=== PATIENT | female | born 1955 | race Caucasian/White ===

== ENCOUNTER 2017-08-29 15:32 | Outpatient (CLI) | payer OTHER ==
--- NOTE | 2017-08-30 09:07 | XRAY Report ---
SACRUM AND COCCYX: 08/29/2017 CLINICAL INDICATION: Pain. FINDINGS: AP, lateral, oblique views of the sacrum and coccyx demonstrate no evidence of fracture. The sacral ala are preserved. The sacroiliac joints demonstrate minimal degenerative changes. A pessary is noted in the pelvis. IMPRESSION: MINIMAL DEGENERATIVE CHANGES IN THE SACROILIAC JOINTS. NO EVIDENCE OF FRACTURE. TD: 08/30/2017 09:06
--- NOTE | 2017-08-30 09:08 | XRAY Report ---
THREE VIEW LUMBAR SPINE: 08/29/2017 CLINICAL INDICATION: Back pain. FINDINGS: AP, lateral, coned down views of the lumbar spine demonstrate mild degenerative disk and facet disease. There is no evidence of compression fracture or subluxation. The bowel gas pattern appears normal. IMPRESSION: MILD DEGENERATIVE CHANGES. TD: 08/30/2017 09:07
== END 2017-08-29 15:33 | disposition home or self-care (01) ==
LOC: DI.S 15:32
PROVIDERS: ATTEND Nurse Practitioner Family
DX: M51.36 Other intervertebral disc degeneration, lumbar region (principal); M47.898 Other spondylosis, sacral and sacrococcygeal region; M47.896 Other spondylosis, lumbar region
CPT/HCPCS: 72100; 72220

== ENCOUNTER 2017-08-29 16:00 | Outpatient (CLI) | payer OTHER ==
--- NOTE | 2017-08-30 11:51 | Mammography Report ---
DIGITAL SCREENING MAMMOGRAM: 08/29/2017 CLINICAL INDICATION: A 62-year-old with history of late childbearing for screening. COMPARISON: 10/2013, 06/2010. TECHNIQUE: Routine CC and MLO projections were obtained of the breasts as well as bilateral laterally exaggerated craniocaudal views. FINDINGS: Scattered fibroglandular tissue is present within the breasts. There are no dominant masses, suspicious microcalcifications, or secondary signs of malignancy. In comparison to the previous studies, there are no significant changes. IMPRESSION: NO MAMMOGRAPHIC EVIDENCE OF MALIGNANCY. NO SIGNIFICANT INTERVAL CHANGES. RECOMMENDATION: Screening mammography is recommended annually. BIRADS CATEGORY 1 - NEGATIVE. STANDARD QUALIFYING STATEMENTS: 1. This examination was reviewed with the aid of Computed-Aided Detection (CAD). 2. A negative or benign imaging report should not delay biopsy if clinically suspicious findings are present. Consider surgical consultation if warranted. More than 5% of cancers are not identified by imaging. 3. Dense breasts may obscure an underlying neoplasm. TD: 08/30/2017 11:51
== END 2017-08-29 23:59 ==
LOC: DI.S 16:00
PROVIDERS: ATTEND Nurse Practitioner Family
DX: Z12.31 Encounter for screening mammogram for malignant neoplasm of breast (principal)
CPT/HCPCS: 77067

== ENCOUNTER 2017-09-22 09:17 | Outpatient (CLI) | payer OTHER ==
--- NOTE | 2017-09-22 12:39 | Ultrasound Report ---
PELVIC ULTRASOUND: 09/22/2017 CLINICAL INDICATION: Evaluate fibroid, increasing back pain. TECHNIQUE: Transabdominal pelvic ultrasound performed for global evaluation. Transvaginal pelvic ultrasound performed for detailed evaluation. Real-time scanning performed and static images obtained. FINDINGS: The uterus measures 10.2 x 8.4 x 7.8 cm. The dominant leiomyoma now measures 8.6 x 8.0 x 7.5 cm, (slightly increased from 07/24/2015, when it measured 8.0 x 7.8 x 7.6 cm). The leiomyoma again obscures the endometrium. The ovaries are unremarkable, with the right measuring 2.0 x 1.9 x 1.1 cm and the left measuring 2.0 x 1.6 x 0.8 cm. No free fluid is present. IMPRESSION: SLIGHT INCREASE IN SIZE OF DOMINANT LEIOMYOMA, OBSCURING THE ENDOMETRIUM. NORMAL OVARIES. TD: 09/22/2017 12:39
== END 2017-09-22 09:18 | disposition home or self-care (01) ==
LOC: DI 09:17
PROVIDERS: ATTEND Nurse Practitioner Family
DX: D25.9 Leiomyoma of uterus, unspecified (principal); M54.5 Low back pain
CPT/HCPCS: 76830; 76856

== ENCOUNTER 2020-12-02 14:14 | Outpatient (CLI) | payer OTHER ==
--- NOTE | 2020-12-03 12:49 | Mammography Report ---
BILATERAL DIGITAL SCREENING MAMMOGRAM 3D/2D WITH EXAGGERATED CC: 12/02/2020 CLINICAL: Routine screening. Comparison is made to exams dated: 08/29/2017 mammogram and 10/24/2013 mammogram - [facility]. There are scattered fibroglandular elements in both breasts. No significant masses, calcifications, or other findings are seen in either breast. There has been no significant interval change. IMPRESSION: NEGATIVE There is no mammographic evidence of malignancy. A 1 year screening mammogram is recommended. This exam was interpreted at Station ID: [id number]. NOTE: For mammograms, a report in lay terms will be sent to the patient. Approximately 15% of breast malignancies will not be visualized mammographically. In the management of a palpable breast mass, a negative mammogram must not discourage biopsy of a clinically suspicious lesion. Electronically Signed By: Jayant Caba M.D. ddp/penrad:12/02/2020 15:15:40 ACR BI-RADS Category 1: Negative 3341F PARENCHYMAL PATTERN: (A) - The breast(s) demonstrate(s) scattered fibroglandular densities. BI-RADS CATEGORY: (1) - 1 RECOMMENDATION: (ANNUAL) - Recommend routine annual screening mammography. [id number] 1 year screening LATERALITY: (B)
== END 2020-12-02 14:15 | disposition home or self-care (01) ==
LOC: DI.S 14:14
PROVIDERS: ATTEND Nurse Practitioner Family
DX: Z12.31 Encounter for screening mammogram for malignant neoplasm of breast (principal)

== ENCOUNTER 2021-02-08 15:58 | Outpatient (CLI) | payer OTHER ==
--- NOTE | 2021-02-09 09:44 | Ultrasound Report ---
PROCEDURE: Pelvic w/Transvaginal INDICATIONS: UTERINE LEIOMYOMA TECHNIQUE: Real-time scanning was performed of the pelvic organs, with image documentation. Additional endovagi nal scanning was necessary due to incomplete visualization of the adnexal and endometrial structures by transabdominal scanning. COMPARISON: Pelvic ultrasound, 09/22/2017. FINDINGS: No pathologic free abdominal or pelvic fluid. Uterus: Uterus is enlarged and retroverted measuring 11.3 x 8.7 x 9.5 cm. The endometrium measures 4.6 mm in combined thickness. There is a large intramural/submucosal fibroid in the right posterior uterine wall measuring 7.6 x 7.2 x 7.3 cm. Previously it measured 8.6 x 8.0 x 7.5 cm on 09/22/2017. Ovaries: Ovaries are not well visualized. IMPRESSION: 1. Enlarged uterus with a large intramural/submucosal fibroid involving the right posterior uterine w all measuring 7.6 x 7.2 x 7.3 cm. It appears slightly decreased in size when compared to 09/22/2017. 2. Ovaries are not visualized. Reviewed by: Kim French MD on 02/09/2021 9:43 AM PDT Approved by: Kim French MD on 02/09/2021 9:43 AM PDT Station ID: [id number]
== END 2021-02-08 15:59 | disposition home or self-care (01) ==
LOC: DI 15:58
PROVIDERS: ATTEND Registered Nurse
DX: D25.1 Intramural leiomyoma of uterus (principal)

== ENCOUNTER 2023-01-20 13:40 | Outpatient (CLI) | payer MEDICARE ==
--- NOTE | 2023-01-20 14:31 | XRAY Report ---
PROCEDURE: Lumbar Spine 2 View INDICATIONS: LOW BACK PAIN TECHNIQUE: 3 views of the lumbar spine were acquired. COMPARISON: None. FINDINGS: Bones: 5 [id number] vertebrae are present. Mild levocurvature of the lumbar spine.. No vertebr al body compression fractures. No suspicious bony lesions. There are multilevel degenerative change s of the lumbar spine with facet arthropathy and disc height loss with degenerative endplate changes and marginal spurring. This is most pronounced at L4-L5 and L5-S1. Decreased osseous correlation. Soft tissues: Overlying bowel gas pattern is normal. No suspicious soft tissue calcifications. IMPRESSION: Multilevel degenerative changes of the lumbar spine. Reviewed by: Khurram Quarles MD on 01/20/2023 2:29 PM PDT Approved by: Khurram Quarles MD on 01/20/2023 2:29 PM PDT Station ID: [id number]
--- NOTE | 2023-01-20 14:32 | XRAY Report ---
PROCEDURE: Sacrum/Coccyx INDICATIONS: LOW BACK PAIN TECHNIQUE: 3 views of the sacrum and coccyx acquired. COMPARISON: X-ray 08/29/2018 FINDINGS: Bones: No fractures or dislocations. No suspicious bony lesions. Decreased osseous mineralization. Mild degenerative changes about sacral iliac joints. Soft tissues: Visualized bowel gas pattern is normal. No suspicious soft tissue densities. IMPRESSION: Mild degenerative changes of bilateral sacroiliac joints. Decreased osseous mineralization. Reviewed by: Khurram Quarles MD on 01/20/2023 2:30 PM PDT Approved by: Khurram Quarles MD on 01/20/2023 2:30 PM PDT Station ID: [id number]
== END 2023-01-20 13:41 | disposition home or self-care (01) ==
LOC: DI.S 13:40
DX: M47.816 Spondylosis without myelopathy or radiculopathy, lumbar region (principal); M47.817 Spondylosis without myelopathy or radiculopathy, lumbosacral region; M47.898 Other spondylosis, sacral and sacrococcygeal region

== ENCOUNTER 2023-07-21 10:12 | Outpatient (CLI) | payer MEDICARE, OTHER ==
--- NOTE | 2023-07-21 13:23 | MRI Report ---
PROCEDURE: Lumbar Spine WO INDICATIONS: LOW BACK PAIN TECHNIQUE: Noncontrast sagittal T1 spin echo and T2 fast echo, sagittal STIR, axial T2 fast spin echo through th e lumbar spine. COMPARISON: Lumbar spine radiographs 01/20/2023. FINDINGS: Image quality: Excellent. Alignment and Curvature: There is normal bony alignment. Bone Marrow: Marrow is of normal overall signal. No acute vertebral body compression fractures. Ty pically incidental Tarlov cysts are noted in the sacrum. Spinal Cord: Conus medullaris terminates at the L2 level. Visualized cord demonstrates normal signa l and size. Paraspinous Soft Tissues: No paravertebral masses. Fibroid uterus is partially imaged. T12-L1: Disc desiccation and facet hypertrophy is seen that do not result in significant spinal figueroa l stenosis or neuroforaminal narrowing. L1-L2: Disc desiccation and mild circumferential disc bulging as well as moderate bilateral facet hypertrophy. Findings result in mild narrowing of the bilateral neural foramina without significant s kindra canal stenosis. L2-L3: Disc desiccation and mild sagittal spinal joint as well as moderate bilateral facet hypertr ophy. Findings result in mild narrowing of the bilateral neural foramina and mild spinal canal narrow ing. L3-L4: Right paracentral disc extrusion is seen measuring 15 x 7 mm on axial images by 15 mm cranio caudal, extending inferiorly along the posterior L4 vertebral body. There is also disc desiccation an d loss of disc space height as well as circumferential disc bulging, moderate bilateral facet hypertr ophy, buckling of the ligamentum flavum. Findings result in effacement of the right lateral recess an d possible impingement of the traversing L4 nerve root, mild to moderate narrowing of the spinal figueroa l, mild to moderate right neural foraminal narrowing and mild left neural foraminal narrowing. L4-L5: Disc desiccation and loss of disc space height with moderate circumferential disc bulging as well as moderate bilateral facet hypertrophy and mild buckling of the ligamentum flavum. Superimpose d small focal disc extrusion is seen in the right paracentral region measuring 9 x 3 x 9 mm extending superiorly along the L4 vertebral body.. There is partial effacement of the right lateral recess wit h disc material abutting the traversing right L5 nerve root. There is moderate right and mild to mode rate left neural foraminal narrowing and mild narrowing of the central spinal canal. L5-S1: Disc desiccation and loss of disc space height with surrounding rectal disc bulging and mild bilateral facet hypertrophy. Findings result in mild to moderate narrowing of the bilateral neural f oramina without significant spinal canal stenosis. IMPRESSION: 1.At L3-4, moderate right paracentral disc extrusion is seen that effaces the right lateral recess an d may impinge upon the traversing right L4 nerve roots. There are also degenerative changes resulting in mild to moderate narrowing of the spinal canal and mild to moderate right and mild left neural fo raminal narrowing at this level. 2.At L4-5, degenerative changes and a small right paracentral disc extrusion are seen with disc mater ial abutting the traversing right L5 nerve roots without definite impingement. There is mild spinal c anal narrowing as well as moderate right and mild to moderate left foraminal narrowing. 3.Additional mild to moderate multilevel degenerative disc disease and facet hypertrophy are seen in the lumbar spine as described in detail in the body of the report. Reviewed by: Adam Camacho MD on 07/21/2023 1:21 PM PST Approved by: Adam Camacho MD on 07/21/2023 1:21 PM PST Station ID: [id number]
== END 2023-07-21 10:13 | disposition home or self-care (01) ==
LOC: DI 10:12
PROVIDERS: ATTEND Registered Nurse
DX: M51.26 Other intervertebral disc displacement, lumbar region (principal); M47.816 Spondylosis without myelopathy or radiculopathy, lumbar region; M47.815 Spondylosis without myelopathy or radiculopathy, thoracolumbar region; M50.33 Other cervical disc degeneration, cervicothoracic region; M48.03 Spinal stenosis, cervicothoracic region; M51.36 Other intervertebral disc degeneration, lumbar region; M48.061 Spinal stenosis, lumbar region without neurogenic claudication; M51.37 Other intervertebral disc degeneration, lumbosacral region; M48.07 Spinal stenosis, lumbosacral region

== ENCOUNTER 2023-07-21 10:13 | Outpatient (CLI) | payer MEDICARE, OTHER ==
--- NOTE | 2023-07-21 13:52 | XRAY Report ---
PROCEDURE: Hips w/Pelvis 2-3V BL INDICATIONS: LOW BACK PAIN TECHNIQUE: 3 view(s) of the hip were acquired. COMPARISON: None FINDINGS: Bones: No fractures or dislocations. No suspicious bony lesions. The visualized pelvic ring appear s intact. Moderate bilateral degenerative hip joint space narrowing as well as lower lumbar spine. N o erosions. Soft tissues: No suspicious soft tissue calcifications or masses. IMPRESSION: Bilateral hip and lower lumbar arthritic change. Reviewed by: Candace Frias MD on 07/21/2023 1:51 PM PST Approved by: Candace Frias MD on 07/21/2023 1:51 PM PST Station ID: [id number]
== END 2023-07-21 10:14 | disposition home or self-care (01) ==
LOC: DI 10:13
PROVIDERS: ATTEND Registered Nurse
DX: M47.816 Spondylosis without myelopathy or radiculopathy, lumbar region (principal); M16.0 Bilateral primary osteoarthritis of hip; M51.26 Other intervertebral disc displacement, lumbar region; M47.815 Spondylosis without myelopathy or radiculopathy, thoracolumbar region; M50.33 Other cervical disc degeneration, cervicothoracic region; M48.03 Spinal stenosis, cervicothoracic region; M51.36 Other intervertebral disc degeneration, lumbar region; M48.061 Spinal stenosis, lumbar region without neurogenic claudication; M51.37 Other intervertebral disc degeneration, lumbosacral region; M48.07 Spinal stenosis, lumbosacral region

== ENCOUNTER 2023-11-29 17:11 | Outpatient (CLI) | payer MEDICARE, OTHER ==
--- NOTE | 2023-11-29 17:46 | CT Report ---
PROCEDURE: Head WO INDICATIONS: HEAD INJURY TECHNIQUE: Noncontrast 4.5 mm thick angled axial sections acquired from the foramen magnum to the vertex. For r adiation dose reduction, the following was used: automated exposure control, adjustment of mA and/or kV according to patient size. COMPARISON: None. FINDINGS: Image quality: Diagnostic CSF spaces: Slightly asymmetric lateral ventricles, larger on the right. No ventriculomegaly overall. Basal cisterns are patent Volume: Generally maintained Brain: No intracranial hemorrhage. Gerber-white differentiation is grossly maintained. Craniofacial structures: No significant craniofacial abnormality where visualized. IMPRESSION: No acute intracranial hemorrhage. Reviewed by: Dawson Hinojosa MD on 11/29/2023 5:45 PM PDT Approved by: Dawson Hinojosa MD on 11/29/2023 5:45 PM PDT Station ID: [id number]
== END 2023-11-29 17:12 | disposition home or self-care (01) ==
LOC: DI 17:11
PROVIDERS: ATTEND Registered Nurse
DX: S09.90XA Unspecified injury of head, initial encounter (principal)

== ENCOUNTER 2023-12-18 08:16 | Outpatient (CLI) | payer MEDICARE, OTHER ==
--- NOTE | 2023-12-19 15:35 | Ultrasound Report ---
PROCEDURE: Pelvic w/Transvaginal INDICATIONS: POSTMENOPAUSAL BLEEDING TECHNIQUE: Real-time scanning was performed of the pelvic organs, with image documentation. Additional endovagi nal scanning was necessary due to incomplete visualization of the adnexal and endometrial structures by transabdominal scanning. COMPARISON: 02/08/2021 FINDINGS: Uterus: Uterus is retroverted and enlarged in size at 9.5 x 9.8 x 9.9 cm. The myometrium is heterog eneous. The endometrium measures 7 mm in combined thickness. Mid fundal intramural/submucosal fibro id measuring 6.6 x 7.8 x 7.0 cm, previously 7.2 x 7.3 x 7.6 cm. Additional left posterior intramural fibroid measuring 2.8 x 3.4 x 3.7 cm which was not seen on prior and may be new. Ovaries: The right ovary measures 2.4 x 1.6 x 2.6 cm, with a calculated ovarian volume of 5.3 cc. Hy poechoic focus within the right ovary measuring 1.8 x 1.3 x 2.0 cm, may represent a solid lesion. The left ovary measures 2.1 x 1.2 x 1.1 cm, with a calculated ovarian volume of 1.4 cc. Less than 12 fo llicles can be seen in each ovary. No adnexal masses are seen. No cystic lesions measuring greater t katz 3 cm. Other: No pathologic free abdominal or pelvic fluid. IMPRESSION: 1.Similar appearance of large fibroid measuring up to 7.8 cm. Additional left posterior intramural fi broid measuring 3.7 cm which was not seen on prior and may be new. 2.Hypoechoic lesion in the right ovary measuring 2.0 cm, a solid lesion is not excluded and follow-up ultrasound in 6-12 weeks is recommended. Reviewed by: Khurram Quarles MD on 12/19/2023 3:34 PM PDT Approved by: Khurram Quarles MD on 12/19/2023 3:34 PM PDT Station ID: [id number]
== END 2023-12-18 08:17 | disposition home or self-care (01) ==
LOC: DI 08:16
PROVIDERS: ATTEND Registered Nurse
DX: D25.1 Intramural leiomyoma of uterus (principal); D25.0 Submucous leiomyoma of uterus; N83.9 Noninflammatory disorder of ovary, fallopian tube and broad ligament, unspecified